=== PATIENT | female | born 1980 | race Two or more races ===

== ENCOUNTER 2016-08-20 11:48 | Inpatient (IN) | payer MEDICAID ==
[2016-08-20 12:01] VITALS: BP 119/80
--- NOTE | 2016-08-20 12:17 | ED Physician Chart ---
Chief Complaint/HPI - Patient Information Date Seen:: 08/20/16 Time Seen:: 12:17 Chief Complaint:: FEELS WEAK AND DIZZY FOR PAST 3 DAYS History of Present Illness:: PT DESCRIBES FEELING WEAK AND DIZZY FOR THE PAST 3 DAYS. SOME OF THE TIME WHEN SHE IS SLEEPING SHE FEELS LIKE THE ROOM IS SPINNIING. MILD NAUSEA WITH THE SPINNING. WHEN SHE IS WALKING, SHE FEELS LIKE SHE MIGHT PASS OUT. HAS A HISTORY OF FAINTING A NUMBER OF TIMES BETWEEN 3 AND 5 YEARS AGO. ALSO HAS HISTORY OF ANEMIA AND HAS HEAVY MENSTRAL BLEEDING AND SHE HAS BEEN TOLD SHE SHOULD HAVE THE FIBROIDS REMOVED FROM HER UTERUS. NO VOMITING OR LOSS OF CONSCIOUSNESS RECENTLY. DENIES CHEST PAIN OR RESPIRATORY DISTRESS. GET SWELLING IN BOTH OF HER LEGS FROM TIME TO TIME. THE PT IS ON THE DAY OF HER MENSTRAL PERIOD AND EXPERIENCING EXTREMELY HEAVY BLEEDING Allergies:: Allergies Allergy/AdvReac Type Severity Reaction Status Date / Time No Known Allergies Allergy Verified 08/20/16 11:57 Vitals:: Vital Signs - 8 hr 08/20/16 08/20/16 12:00 12:06 Temp 98.5 F HR 85 RR 15 BP 119/80 119/80 O2 Sat % 98 Review of Systems - Review of Systems General/Constitutional: No fever, No diaphoresis, Loss of appetite Skin: No skin lesions, No rash Head: No headache, Light headed Eyes: No loss of vision, No diplopia ENT: No earache, No sore throat, No tinnitus Neck: No neck pain, No swelling, No thyromegaly, No stiffness, No mass noted Cardio Vascular: No chest pain, No palpitations, No orthopnea, edema (patient gets intermittent edema in both lower extremities.) GI: Nausea, No vomiting, No diarrhea, No hematemesis G/U: No dysuria, Frequency, No hematuria [employer]: Abnormal vaginal bleeding, Other (menstrual periods are heavy.) Musculoskeletal: No bone or joint pain, No back pain, No muscle pain Endocrine: Polyuria, No polydipsia Psychiatric: Depression, No suicidal ideation Hematopoietic: No bruising Allergic/Immuno: No angioedema Neurological: Weakness, Dizziness, Vertigo (loss of balance and near syncope.) Past Medical History - Past Medical History Past Medical History: Other (PT WITH FIBROIDS IN UTERUS, HEAVY MENSTRAL BLEEDING , SEVERE ANEMIA REQUIRING TRANSFUSIONS.) Family History: Diabetes Melitus Social History: Smoker, Alcohol, Illicit Drug Use, Single Surgical History: None Family Medical History - Family Member Mother History Unknown: Yes Ethnicity: Hx Family Diabetes: Yes Physical Exam - Physical Examination General/Constitutional: Awake, Well-developed, well-nourished, Alert, No distress, GCS 15, Non-toxic appearing, Ambulatory Head: Atraumatic Eyes: PERRL, EOMI Other Eyes comments:: PALE CONJUNTIVAL INSIDE EYELIDS. NO NYSTAGMUS ON LATERAL GAZE. Skin: No rash, No skin lesions, No ecchymosis Other Skin comments:: No petechiae. ENMT: External ears, nose nl, Nasal exam nl, Lips, teeth, gums nl, Oropharynx nl , Tonsils nl Neck: Nontender, Full ROM w/o pain, No JVD, No nuchal rigidity, No mass Respiratory: Nl effort/Exclusion, Clear to Auscultation, No Wheeze/Rhonchi/Rales Cardio Vascular: RRR, No murmur, gallop, rubs, NL S1 S2 Other Cardio Vascular comments:: Adequate proposals in all four extremities. GI: No organomegaly, No hernia, Normal BS's, Nondistended, No mass/bruits, No McBurney tenderness Other GI comments:: Mild tenderness in the suprapubic region without associated rebound regarding. : No CVA tenderness Extremities: No tenderness or effusion, Full ROM, normal strength in all extremities, No edema Neuro/Psych: Alert/oriented, DTR's symmetric, Normal sensory exam, Normal motor strength, Mood normal, Normal gait, No focal deficits Misc: Normal back, No paraspinal tenderness Labs/Radiology/EKG Results - Lab Results Results: Laboratory Tests 08/20/16 08/20/16 08/20/16 12:04 12:20 12:20 WBC RBC Hgb Hct MCV MCH MCHC Differential RDW Plt Count MPV Band Neutrophils % Neutrophils (Manual) Lymphocytes Monocytes Eosinophils Platelet Estimate Platelet Morphology Poikilocytosis Anisocytosis Microcytosis RBC Morph Micro Appear Sodium Potassium Chloride Carbon Dioxide Anion Gap BUN Creatinine Est GFR ( Amer) Est GFR (Non-Af Amer) BUN/Creatinine Ratio Glucose POC Glucose 119 H Calcium Total Bilirubin AST ALT Alkaline Phosphatase Total Protein Albumin Globulin Albumin/Globulin Ratio Urine Source RANDOM Urine Color YELLOW Urine Clarity SL. CLOUDY Urine pH 7.0 Ur Specific [place] Urine Protein NEGATIVE Urine Glucose (UA) NEGATIVE Urine Ketones NEGATIVE Urine Blood SMALL H Urine Nitrate POSITIVE H Urine Bilirubin NEGATIVE Urine Urobilinogen 1.0 Ur Leukocyte Esterase NEGATIVE Urine RBC 4-7 Urine WBC 2-5 Ur Epithelial Cells RARE Urine Bacteria MANY Urine Test NEGATIVE Blood Type Antibody Screen Crossmatch 08/20/16 08/20/16 08/20/16 13:05 13:46 13:46 WBC 7.3 RBC 4.03 Hgb 6.2 L* Hct 20.6 L* D MCV 51.2 L MCH 15.4 L MCHC Differential 30.0 RDW 23.1 H Plt Count 394 D MPV 7.9 Band Neutrophils % 2 Neutrophils (Manual) 68 Lymphocytes 25 Monocytes 4 Eosinophils 1 Platelet Estimate ADEQUATE Platelet Morphology NORMAL Poikilocytosis 1+ Anisocytosis 2+ Microcytosis 3+ RBC Morph Micro Appear ABNORMAL Sodium 137 Potassium 3.7 Chloride 104 Carbon Dioxide 28.3 Anion Gap 8.4 BUN 16 Creatinine 0.6 Est GFR ( Amer) > 60.0 Est GFR (Non-Af Amer) > 60.0 BUN/Creatinine Ratio 26.7 Glucose 107 H POC Glucose Calcium 9.1 Total Bilirubin 0.6 AST 12 L ALT 9 Alkaline Phosphatase 54 Total Protein 7.1 Albumin 3.8 Globulin 3.3 Albumin/Globulin Ratio 1.2 Urine Source Urine Color Urine Clarity Urine pH Ur Specific [place] Urine Protein Urine Glucose (UA) Urine Ketones Urine Blood Urine Nitrate Urine Bilirubin Urine Urobilinogen Ur Leukocyte Esterase Urine RBC Urine WBC Ur Epithelial Cells Urine Bacteria Urine Test Blood Type O POSITIVE Antibody Screen NEGATIVE Crossmatch See Detail LAB INTERPRETATION: the CBC shows a critical low hemoglobin of 6.2. Electrolytes were all within normal parameters. Liver and renal function tests are normal. Assessment - Assessment General Assessment: CASE SUMMARY: THIS 36-YEAR-OLD FEMALE PRESENTS WITH A THREE DAY HISTORY OF FEELING SICK AND HAVING WEAKNESS AND DIZZINESS. The weakness is generalized and not vocal. The dizziness is a combination of feeling as though she's going to pass out and that the room is spinning. Patient has a prior history of multiple fainting episodes secondary to severe anemia from excessive badge no bleeding. Physical examination showed no nystagmus on lateral gaze and normal motor in all extremities. The patient's gait was steady. Laboratory study showed a critical low hemoglobin of 6.2. The patient was typed and crossed and transfused with one unit of packed red cells. Disposition was pending at the time of shift change and I pass the care of the patient onto Dr. Rodriges. [facility] DDX FOR WEAK AND DIZZY: NOT Electrolyte imbalance based on laboratory studies. NOT Cerebellar infarction due to physical examination and alternate diagnosis of extreme anemia. NOT Hypoglycemia based on laboratory studies. NOT Traumatic IC Bleed due No recent history of head trauma. CRITICAL CARE: 40 Minutes exclusive of any procedures that were separately billed. Patient had critical low hemoglobin level and was transfused with packed red cells. ED Septic Shock - . Is Septic Shock (SBP<90, OR Lactate>4 mmol\L) present?: No - <6hrs of presentation: Vital Signs: Vital Signs - 8 hr 08/20/16 08/20/16 12:00 12:06 Temp 98.5 F HR 85 RR 15 BP 119/80 119/80 O2 Sat % 98 Reassessment (Disposition) - Reassessment Reassessment Condition:: Improved - Diagnosis Diagnosis:: UTERINE FIBROIDS, VAGINAL BLEEDING, CRITICAL ANEMIA WITH HBG of 6.2 - Patient Disposition Discharge/Transfer:: Acute Care w/in this hosp ED Discharge Plan - Patient Disposition Admit/Discharge/Transfer: Acute Care w/in this hosp Condition at Disposition: Stable
[2016-08-20 13:27] LABS: URINE BILIRUBIN NEGATIVE (NEGATIVE); URINE BLOOD SMALL (NEGATIVE); URINE COLOR YELLOW; URINE GLUCOSE (UA) NEGATIVE (NEGATIVE); URINE KETONE NEGATIVE (NEGATIVE); URINE PROTEIN NEGATIVE (NEGATIVE)
[2016-08-20 13:40] LABS: ALB/GLOB RATIO 1.2 (1.0-1.8); ALKALINE PHOSPHATASE 54 U/L (34-104); BILIRUBIN,TOTAL 0.6 mg/dL (0.3-1.0); BUN - UREA NITROGEN 16 mg/dL (7-25); BUN/CREATININE RATIO 26.7; CALCIUM SERUM 9.1 mg/dL (8.6-10.3); CARBON DIOXIDE 28.3 mEq/L (21.0-31.0); CREATININE - SERUM 0.6 mg/dL (0.6-1.2); GLUCOSE 107 mg/dL (70-105); POTASSIUM SERUM 3.7 mEq/L (3.5-5.1); SGOT 12 U/L (13-39); SGPT/ALT 9 U/L (7-52); SODIUM SERUM 137 mEq/L (136-145)
[2016-08-20 13:45] LABS: URINE BACTERIA MANY /hpf (NONE SEEN); URINE EPITHELIAL CELLS RARE /lpf (FEW)
[2016-08-20 13:53] LABS: MEAN CORPUSCULAR HEMOGLOBIN 15.4 pg (27.0-31.0); MEAN PLATELET VOLUME 7.9 fl; RED BLOOD COUNT 4.03 Mil/cmm (3.80-5.10); RED CELL DISTRIBUTION WIDTH 23.1 % (11.5-20.0); WHITE BLOOD COUNT 7.3 Th/cmm (4.8-10.8)
[2016-08-20 13:55] LABS: HEMOGLOBIN 6.2 gm/dL (11.7-15.5)
[2016-08-20 13:56] LABS: HEMATOCRIT 20.6 % (35.0-45.0); PLATELET COUNT 394 Th/cmm (150-400)
[2016-08-20 14:00] LABS: BAND NEUTROPHILE 2 % (0-10); EOSINOPHIL 1 % (0-5); NEUTROPHILS 68 % (40-80); TOTAL CELLS COUNTED 100
[2016-08-20 14:02] LABS: ANISOCYTOSIS 2+; MICROCYTOSIS 3+; PLATELET ESTIMATE ADEQUATE (NORMAL); PLATELET MORPHOLOGY NORMAL (NORMAL); POIKILOCYTOSIS 1+
[2016-08-20 14:10] LABS: ANION GAP 8.4 (7.0-16.0); CHLORIDE 104 mEq/L (98-107)
[2016-08-20 14:19] LABS: MEAN CELL VOLUME 51.2 fl (81-100)
--- NOTE | 2016-08-20 14:49 | Diagnostic Imaging Report ---
CHEST X-RAY: AP view INDICATION: Near syncope COMPARISON: None FINDINGS: There is no focal consolidation or pleural effusions Borderline cardiomegaly is noted. The osseous structures demonstrate no acute abnormalities. IMPRESSION: No focal acute pulmonary process Borderline cardiomegaly.
--- NOTE | 2016-08-20 19:58 | Admit Criteria Form ---
Admit Criteria Forms - Admit Criteria Diagnosis: DIZZINESS Clinical Indications for Admission to Inpatient Care (Place 'X' for any and all applicable criteria): Admission is indicated for ANY ONE of the following(1)(2)(3)(4): [X]I. Inpatient admission required rather than observation care (Also use Dizziness: Observation Care as appropriate) because of ANY ONE of the following: [ ]a) Hemodynamic instability that is severe or persistent [X]b) Signs or symptoms that are severe or persistent (eg, vomit, orthostasis, inability to ambulate) [ ]c) Cardiac arrhythmias of immediate concern [ ]d) Severe (new) neurologic findings requiring inpatient care as indicated by ANY ONE of the following(6)(7): [ ]1) Cerebral bleeding, ischemia, or vasospasm(8)(9) [ ]2) Increased intracranial pressure or hydrocephalus(10)(11)(12) [ ]3) Papilledema [ ]4) Cerebral edema [ ]5) Mass effect on CT scan [ ]e) Continuous IV infusion of anticoagulation, platelet inhibitor, vasoactive, or antiarrhythmic medication [ ]f) Cerebral bleeding, hydrocephalus, or vasospasm monitoring(14) [ ]g) Increased intracranial pressure or cerebral edema monitoring [ ]h) Vomiting that is severe or persistent [X]i) Other condition, treatment or monitoring requiring inpatient admission [ ]II. A suspected etiology that requires admission for treatment [ ]III. Acute bacterial labyrinthitis [ ]IV. Cerebellar, brainstem, or cerebral ischemia or hemorrhage (5) Extended stay beyond goal length of stay may be needed for evaluating and treating a specific cause of dizziness, including(32) [ ]a) Head injury (Also use Traumatic Brain Injury, Nonsurgical Treatment guideline) [ ]b) New-onset vertebrobasilar vascular insufficiency [ ]c) Acute Meniere disease with intractable symptoms [ ]d) Cardiac arrhythmias or conduction defects [ ]e) Acute neurologic event causing dizziness [ ]f) Myocardial ischemia [ ]g) Acute bacterial labyrinthitis. [ ]h) Severe acute vestibular neuronitis The original [facility] [employer] content created by [employer] has been revised. The portions of the content which have been revised are identified through the use of italic text or in bold, and [facility] [employer] has neither reviewed nor approved the modified material. All other unmodified content is copyright [facility]. Please see references footnoted in the original [facility] edition 2016 Admit Criteria Met?: Yes
[2016-08-20] MEDS ORDERED: Ferrous Sulfate 325 MG TAB PO ONE (21:27)
[2016-08-20] MEDS ORDERED: D5-0.9%NS 1,000 ML IV SCH (21:30)
[2016-08-21] MEDS ORDERED: Pneumococcal Vaccine 0.5 mL Vial IM ONE (06:00)
[2016-08-21] MEDS ORDERED: Pantoprazole 40 mg EC Tab PO SCH (09:00)
[2016-08-21] MEDS ORDERED: Influenza Vaccine 0.5 mL Syr IM ONE (14:01)
--- NOTE | 2016-08-21 23:09 | History & Physical ---
CHIEF COMPLAINT: Feel weak and dizzy. HISTORY OF PRESENT ILLNESS: This is a 36-year-old female with history of menorrhagia presented to Emergency Room for feeling dizziness associated with nausea. The patient was noted to have a significant anemia with hemoglobin of 6.4. The patient was admitted for further blood transfusion. PAST MEDICAL HISTORY: Remarkable for menorrhagia and uterine fibroids. MEDICATIONS AT HOME: She was taking Protonix. ALLERGIES: The patient is not allergic to medications. SOCIAL HISTORY: She lives with family. The patient denies any street drug use, smoking cigarette, or alcohol use. FAMILY MEDICAL HISTORY: Remarkable for diabetes. REVIEW OF SYSTEMS: The patient denies any headache, blurred vision, or double vision. Denies any sore throat. Denies any chest pain. Denies any shortness of breath. Denies any palpitation. Denies any nausea, vomiting, or diarrhea. Denies any seizure or syncopal episode. PHYSICAL EXAMINATION: GENERAL: The patient is alert and awake, lying in the bed. VITAL SIGNS: Temperature 98.5, pulse 85, respiratory rate 18, and blood pressure 119/80. SKIN: Warm to touch. HEENT: Normocephalic and atraumatic. Tongue and conjunctiva are pale. NECK: Supple. No JVD. No lymphadenopathy or thyromegaly. Heart: Both heart sounds are regular. CHEST AND LUNGS: Equal in expansion. No wheezing and no crackles. ABDOMEN: Soft. No guarding and no rigidity. Liver and spleen not palpable. No palpable mass. EXTREMITIES: No edema and no cyanosis. NEUROLOGIC: Nonfocal. CLINICAL IMPRESSION: 1. Severe symptomatic anemia. 2. Menorrhagia secondary to fibroid. 3. Gastritis. PLAN: 1. Admit this patient to Med/Surg floor. 2. Blood transfusion. 3. Follow up lab. 4. Anemia workup. 5. Outpatient workup with [facility] for her menorrhagia. 6. Care plan reviewed. JOB# [id number]
[2016-08-22 11:18] LABS: FERRITIN 2 ng/mL (15-150); IRON SATURATION 2 % (15-55); TIBC (LCI) 432 ug/dL (250-450); TRANSFERRIN 365 mg/dL (200-370); UIBC 424 ug/dL (131-425)
== END 2016-08-21 12:30 | disposition home or self-care (01) | DRG 663 ==
LOC: ER 11:48 → ICU 21:24
PROVIDERS: ADMIT Internal Medicine; ATTEND Internal Medicine
PROC: 30233N1 Transfusion of Nonautologous Red Blood Cells into Peripheral Vein, Percutaneous Approach (ICD-10-PCS; principal; 2016-08-20)
DX: D64.9 Anemia, unspecified (principal); D25.9 Leiomyoma of uterus, unspecified; F17.210 Nicotine dependence, cigarettes, uncomplicated; N93.9 Abnormal uterine and vaginal bleeding, unspecified; N92.0 Excessive and frequent menstruation with regular cycle; K29.70 Gastritis, unspecified, without bleeding; Z82.49 Family history of ischemic heart disease and other diseases of the circulatory system
CPT/HCPCS: 36415-UA; 71010-TC; 80053-TC; 81001-TC; 81025-TC; 82728-90; 82948-90; 83540-90; 83550-90; 84466-90; 85007-TC; 85027-TC; 86850-TC; 86900-TC; 86901-TC; 86922-TC; 96374; 96375; J1885; J7030; P9016; Q0162; Z7610